=== PATIENT | male | born 1980 | race Caucasian/White ===

== ENCOUNTER 2025-08-12 08:34 | Outpatient (CLI) | payer OTHER | END 2025-08-12 08:35 | disposition home or self-care (01) | LOC: CSHSLEEP 08:34 | PROVIDERS: ATTEND Internal Medicine | DX: G47.33 Obstructive sleep apnea (adult) (pediatric) (principal); R06.83 Snoring; F41.9 Anxiety disorder, unspecified | CPT/HCPCS: 95800 ==